=== PATIENT | male | born 1970 | race African-American/Black ===

== ENCOUNTER 2024-04-05 17:51 | Emergency (ER) | payer OTHER ==
[~2024-04-05] VITALS: Ht 177.8 cm; Wt 98.0 kg
[2024-04-05 18:18] VITALS: BP 136/97; PULSE 7; RESP 16; TEMP 98; O2SAT 98
[2024-04-05] MEDS ORDERED: IBUP-2213 PO (18:53)
[2024-04-05] MEDS ORDERED: AMOX-1230 PO (18:53)
[2024-04-05] MEDS: AMOXIL/CLAVULANATE 875/125 MG 1 TAB PO ONE (18:59)
[2024-04-05] MEDS: KETOROLAC 30 MG/ML VIAL IM ONE (19:00)
== END 2024-04-05 19:05 | disposition home or self-care (01) ==
LOC: MED 17:51
DX: K08.89 Other specified disorders of teeth and supporting structures (principal); Z79.1 Long term (current) use of non-steroidal anti-inflammatories (NSAID); Z79.2 Long term (current) use of antibiotics
CPT/HCPCS: 96372; 99283; J1885